=== PATIENT | female | born 1945 | race Caucasian/White ===

== ENCOUNTER 2024-08-25 00:58 | Inpatient (IN) | payer MEDICARE ==
[~2024-08-25] VITALS: Ht 157.5 cm; Wt 65.1 kg
[2024-08-25] MEDS: IV NS 0.9% 1,000 ML BAG IV ONE (01:26)
[2024-08-25 01:37] LABS: BASOPHILS % (AUTO) 0.7 % (0.0-2.0); EOSINOPHILS # (AUTO) 0.2 K/uL (0.0-0.7); EOSINOPHILS % (AUTO) 3.9 % (0.0-6.0); HEMATOCRIT 40 % (33-45); HEMOGLOBIN 13.4 g/dL (11.5-14.8); LYMPHOCYTES # (AUTO) 1.4 K/uL (0.8-4.8); LYMPHOCYTES % (AUTO) 26.4 % (20.0-44.0); MEAN CORPUSCULAR HEMOGLOBIN 31 PG (26.0-33.0); MEAN CORPUSCULAR HGB CONC 34 g/dl (31.0-36.0); MEAN CORPUSCULAR VOLUME 91 fL (82-100); MONOCYTES # (AUTO) 0.5 K/uL (0.1-1.30); MONOCYTES % (AUTO) 10.6 % (2.0-12.0); NEUTROPHILS % (AUTO) 58.4 % (43.0-81.0); PLATELET COUNT (AUTO) 266 K/uL (150-450); RED BLOOD CELL COUNT(AUTO) 4.35 MIL/uL (4.0-5.2); RED CELL DISTRIBUTION WIDTH 16.3 % (11.5-15.0); WHITE BLOOD COUNT (AUTO) 5.1 K/uL (4.3-11.0)
[2024-08-25 01:48] LABS: CALCIUM, SERUM 9.6 mg/dL (8.5-10.1); CARBON DIOXIDE 27 mmol/L (21-32); CHLORIDE 106 mmol/L (98-107); CREATININE 0.8 mg/dL (0.6-1.3); GLUCOSE 100 mg/dL (74-106); INR 0.93 (0.91-1.10); POTASSIUM 4.2 mmol/L (3.5-5.1); PROTHROMBIN TIME 9.9 SECS (9.2-11.1); SODIUM SERUM 146 mmol/L (136-145); UREA NITROGEN, BLOOD 14 mg/dL (7-18)
[2024-08-25 02:32] LABS: APPEARANCE,URINE CLEAR (CLEAR); BILIRUBIN,URINE NEGATIVE (NEGATIVE); BLOOD, URINE NEGATIVE Ery/uL (NEGATIVE); COLOR,URINE YELLOW (YELLOW); KETONES,URINE NEGATIVE (NEGATIVE); LEUKOCYTE ESTERASE ,URINE 1+ (NEGATIVE); NITRITE, URINE NEGATIVE (NEGATIVE); PROTEIN,URINE NEGATIVE (NEGATIVE); UGLUCOSE NEGATIVE (NEGATIVE); UROBILINOGEN,URINE 0.2 EU/dL (0.2)
[2024-08-25 02:41] LABS: ACETAMINOPHEN <10 ug/ml (10-30); ALANINE AMINOTRANSFERASE 22 U/L (12-78); ALBUMIN 3.7 g/dL (3.4-5.0); ALCOHOL, BLOOD < 3 mg/dL (0-10); ALKALINE PHOSPHATASE 83 U/L (46-116); ASPARTATE AMINOTRANSFERASE 27 U/L (15-37); BILIRUBIN,DIRECT 0.2 mg/dL (0.0-0.2); BILIRUBIN,TOTAL 0.7 mg/dL (0.2-1.0); SALICYLATE 0.4 mg/dL (2.8-20.0); TOTAL PROTEIN, SERUM 7.5 g/dL (6.4-8.2)
[2024-08-25 02:57] LABS: ADD URINE CULTURE YES; BACTERIA,URINE Few /HPF (None Seen); RBC,URINE 0-2 /HPF (0-2); SQUAMOUS EPITHELIAL CELL,UR Rare /HPF (None Seen)
[2024-08-25 03:11] LABS: AMPHETAMINE, URINE NEGATIVE (NEGATIVE); BARBITURATE, URINE NEGATIVE (NEGATIVE); BENZODIAZEPINE, URINE NEGATIVE (NEGATIVE); CANNABINOID, URINE NEGATIVE (NEGATIVE); COCCAINE, URINE NEGATIVE (NEGATIVE); PHENCYCLIDINE SCREEN,URINE NEGATIVE (NEGATIVE)
[2024-08-25 03:12] LABS: OPIATE, URINE POSITIVE (NEGATIVE)
[2024-08-25 03:31] LABS: SERUM AMMONIA 39 umol/L (11-32)
[2024-08-25] MEDS ORDERED: NITROFURANTOIN/MONOHYDRATE MACROCRYSTALS 100 MG CAPSULE ONE (03:33)
[2024-08-25] MEDS: NITROFURANTOIN/MONOHYDRATE MACROCRYSTALS 100 MG CAPSULE PO ONE (03:34)
[2024-08-25] MEDS ORDERED: NITR100C6 PO (05:25)
[2024-08-25] MEDS ORDERED: ACETAMINOPHEN 325 MG TABLET ONE (07:30)
[2024-08-25] MEDS: ACETAMINOPHEN 325 MG TABLET PO ONE (07:35)
[2024-08-25] MEDS ORDERED: Z GUARD REMEDY 4 OZ OINT TP PRN (11:30)
[2024-08-25] MEDS ORDERED: MAG HYDROX/AL HYDROX/SIMETH 30 ML UDC PO PRN (11:30)
[2024-08-25] MEDS ORDERED: MAGNESIUM HYDROXIDE 30 ML UDC PO PRN (11:30)
[2024-08-25] MEDS ORDERED: ONDANSETRON HCL/PF 4 MG/2 ML VIAL IVP PRN (11:30)
[2024-08-25] MEDS: OLANZAPINE 10 MG VIAL IM ONE (12:14)
[2024-08-25] MEDS: IV NS 0.9% 1,000 ML IV PRN (13:14)
[2024-08-25] MEDS: CEFTRIAXONE 1 G in IV D5W 50 ML IV SCH (13:43)
[2024-08-25] MEDS ORDERED: BACL20TA PO (15:50)
[2024-08-25] MEDS ORDERED: ESZO2TAB31 PO (15:50)
[2024-08-25] MEDS ORDERED: DULO60CA64 PO (15:50)
[2024-08-25] MEDS ORDERED: ALPR0.255 PO (15:50)
[2024-08-25] MEDS ORDERED: FAMO20TA8 PO (15:50)
[2024-08-25] MEDS ORDERED: LORA-259 PO (15:50)
[2024-08-25] MEDS ORDERED: NEBI2.5T5 PO (15:50)
[2024-08-25] MEDS ORDERED: ATOR40TA PO (15:50)
[2024-08-25 16:00] VITALS: BP 137/68; TEMP 98.1; O2SAT 95
[2024-08-25] MEDS: ACETAMINOPHEN 325 MG TABLET PO PRN (17:41)
[2024-08-25 20:00] VITALS: BP 154/78; TEMP 97.9; O2SAT 96
[2024-08-26] VITALS (7 sets, daily range): BP systolic 133–167; BP diastolic 69–88; TEMP 97.3–98.2; O2SAT 95–98
[2024-08-26] MEDS: ALPRAZOLAM 0.25 MG TABLET PO PRN (01:05)
[2024-08-26 07:11] LABS: BASOPHILS % (AUTO) 0.7 % (0.0-2.0); EOSINOPHILS # (AUTO) 0.2 K/uL (0.0-0.7); EOSINOPHILS % (AUTO) 2.6 % (0.0-6.0); HEMATOCRIT 33 % (33-45); HEMOGLOBIN 11.3 g/dL (11.5-14.8); LYMPHOCYTES # (AUTO) 1.6 K/uL (0.8-4.8); LYMPHOCYTES % (AUTO) 24.7 % (20.0-44.0); MEAN CORPUSCULAR HEMOGLOBIN 31 PG (26.0-33.0); MEAN CORPUSCULAR HGB CONC 34 g/dl (31.0-36.0); MEAN CORPUSCULAR VOLUME 91 fL (82-100); MONOCYTES # (AUTO) 0.7 K/uL (0.1-1.30); MONOCYTES % (AUTO) 11.4 % (2.0-12.0); NEUTROPHILS # (AUTO) 3.8 K/uL (1.8-8.9); NEUTROPHILS % (AUTO) 60.6 % (43.0-81.0); PLATELET COUNT (AUTO) 234 K/uL (150-450); RED BLOOD CELL COUNT(AUTO) 3.68 MIL/uL (4.0-5.2); RED CELL DISTRIBUTION WIDTH 16.1 % (11.5-15.0); WHITE BLOOD COUNT (AUTO) 6.3 K/uL (4.3-11.0)
[2024-08-26 07:14] LABS: CALCIUM, SERUM 7.2 mg/dL (8.5-10.1); CARBON DIOXIDE 21 mmol/L (21-32); CHLORIDE 114 mmol/L (98-107); CREATININE 0.6 mg/dL (0.6-1.3); GLUCOSE 78 mg/dL (74-106); MAGNESIUM 1.6 mg/dL (1.8-2.4); PHOSPHORUS 2.9 mg/dL (2.5-4.9); POTASSIUM 2.9 mmol/L (3.5-5.1); SODIUM SERUM 144 mmol/L (136-145); UREA NITROGEN, BLOOD 9 mg/dL (7-18)
[2024-08-26] MEDS ORDERED: POTASSIUM CHLORIDE 20 MEQ TAB.PRT.SR PO SCH (09:00)
[2024-08-26] MEDS: Magnesium 1GM/D5W 100ML PREMIX 100 ML IV SCH (09:44)
[2024-08-26] MEDS: POTASSIUM CHLORIDE 20 MEQ POWDER PACKET PO SCH (10:25)
[2024-08-26] MEDS: METOPROLOL TARTRATE 25 MG TABLET PO SCH (10:30)
[2024-08-26] MEDS: FAMOTIDINE (20 MG) 20 MG TABLET PO SCH (16:23)
[2024-08-26] MEDS: CLONIDINE HCL 0.1 MG TABLET PO PRN (16:23)
[2024-08-26] MEDS ORDERED: ALPRAZOLAM 0.25 MG TABLET PO PRN (19:30)
[2024-08-27] MEDS: ALPRAZOLAM 0.25 MG TABLET PO PRN (02:22)
[2024-08-27 06:02] LABS: BASOPHILS % (AUTO) 0.5 % (0.0-2.0); EOSINOPHILS # (AUTO) 0.1 K/uL (0.0-0.7); EOSINOPHILS % (AUTO) 1.5 % (0.0-6.0); HEMATOCRIT 38 % (33-45); HEMOGLOBIN 12.4 g/dL (11.5-14.8); LYMPHOCYTES # (AUTO) 1.3 K/uL (0.8-4.8); LYMPHOCYTES % (AUTO) 16.2 % (20.0-44.0); MEAN CORPUSCULAR HEMOGLOBIN 30 PG (26.0-33.0); MEAN CORPUSCULAR HGB CONC 33 g/dl (31.0-36.0); MEAN CORPUSCULAR VOLUME 91 fL (82-100); MONOCYTES # (AUTO) 0.8 K/uL (0.1-1.30); MONOCYTES % (AUTO) 9.4 % (2.0-12.0); NEUTROPHILS # (AUTO) 5.8 K/uL (1.8-8.9); NEUTROPHILS % (AUTO) 72.4 % (43.0-81.0); PLATELET COUNT (AUTO) 258 K/uL (150-450); RED BLOOD CELL COUNT(AUTO) 4.16 MIL/uL (4.0-5.2); RED CELL DISTRIBUTION WIDTH 15.6 % (11.5-15.0); WHITE BLOOD COUNT (AUTO) 8.1 K/uL (4.3-11.0)
[2024-08-27 06:24] LABS: ALBUMIN 3.1 g/dL (3.4-5.0); BILIRUBIN,TOTAL 0.6 mg/dL (0.2-1.0); CREATININE 0.6 mg/dL (0.6-1.3); MAGNESIUM 2.1 mg/dL (1.8-2.4); PHOSPHORUS 4.4 mg/dL (2.5-4.9); TOTAL PROTEIN, SERUM 6.6 g/dL (6.4-8.2)
[2024-08-27 07:00] VITALS: BP 133/85; TEMP 97.7; O2SAT 96
[2024-08-27 08:00] VITALS: BP 133/85; TEMP 97.7; O2SAT 96
[2024-08-27] MEDS: DULOXETINE HCL 30 MG CAPSULE.DR PO SCH (09:29)
[2024-08-27] MEDS: MAGNESIUM CITRATE 296 ML BOTTLE PO ONE (09:29)
[2024-08-27 10:25] LABS: THYROID STIMULATING HORMONE 2.2 uIU/mL (0.358-3.74)
[2024-08-27 16:00] VITALS: BP_SYST 135; BP_SYST 141; BP_DIAS 74; BP_DIAS 84; TEMP 98.6; O2SAT 96
[2024-08-27] MEDS ORDERED: HYDR-3980 PO (16:31)
[2024-08-27] MEDS ORDERED: [UNRECOGNIZED DRUG - OTHER] SL (16:31)
[2024-08-27] MEDS ORDERED: ACYC400T19 PO (16:31)
[2024-08-27] MEDS ORDERED: CARI350T27 PO (16:31)
[2024-08-27] MEDS ORDERED: PANCREATIC ENZYMES PO (16:31)
[2024-08-27] MEDS ORDERED: DILT30TA2 PO (16:31)
[2024-08-27] MEDS ORDERED: AMLO2.5T4 PO ×2 (16:31)
[2024-08-27] MEDS ORDERED: PROP15DR EACHEYE (16:31)
[2024-08-27] MEDS ORDERED: CYPROHEPTADINE PO (16:31)
[2024-08-27] MEDS ORDERED: CETI10TA14 PO (16:31)
[2024-08-27 20:00] VITALS: BP 122/71; TEMP 98.2; O2SAT 94
[2024-08-28 06:17] LABS: BASOPHILS % (AUTO) 0.1 % (0.0-2.0); EOSINOPHILS # (AUTO) 0.2 K/uL (0.0-0.7); EOSINOPHILS % (AUTO) 1.7 % (0.0-6.0); HEMATOCRIT 39 % (33-45); HEMOGLOBIN 13.2 g/dL (11.5-14.8); LYMPHOCYTES # (AUTO) 1.5 K/uL (0.8-4.8); LYMPHOCYTES % (AUTO) 15.5 % (20.0-44.0); MEAN CORPUSCULAR HEMOGLOBIN 31 PG (26.0-33.0); MEAN CORPUSCULAR HGB CONC 34 g/dl (31.0-36.0); MEAN CORPUSCULAR VOLUME 91 fL (82-100); MONOCYTES # (AUTO) 1.1 K/uL (0.1-1.30); MONOCYTES % (AUTO) 11.7 % (2.0-12.0); NEUTROPHILS # (AUTO) 6.7 K/uL (1.8-8.9); PLATELET COUNT (AUTO) 260 K/uL (150-450); RED BLOOD CELL COUNT(AUTO) 4.27 MIL/uL (4.0-5.2); RED CELL DISTRIBUTION WIDTH 16.1 % (11.5-15.0); WHITE BLOOD COUNT (AUTO) 9.5 K/uL (4.3-11.0)
[2024-08-28 06:22] LABS: CALCIUM, SERUM 9.1 mg/dL (8.5-10.1); CREATININE 0.9 mg/dL (0.6-1.3); MAGNESIUM 2.4 mg/dL (1.8-2.4); PHOSPHORUS 4.2 mg/dL (2.5-4.9); POTASSIUM 3.7 mmol/L (3.5-5.1)
[2024-08-28 08:00] VITALS: BP 111/63; TEMP 98.6; O2SAT 99
[2024-08-28 16:00] VITALS: BP 147/80; TEMP 97.7; O2SAT 98
[2024-08-28 17:13] VITALS: BP 149/80
[2024-08-29 02:08] LABS: FOLIC ACID 7.4 ng/mL (>3.0)
[2024-08-29] MEDS ORDERED: PROSOURCE / PROSTAT (PYXIS) 30 ML UDC PO SCH (09:00)
== END 2024-08-28 18:10 | disposition home or self-care (01) | DRG 93 ==
LOC: ER 01:06 → TELE 11:49 → MED 08-26 09:44
PROVIDERS: ADMIT Internal Medicine; ATTEND Internal Medicine
DX: G92.8 Other toxic encephalopathy (principal); E83.42 Hypomagnesemia; E87.6 Hypokalemia; I10 Essential (primary) hypertension; E78.5 Hyperlipidemia, unspecified; F32.9 Major depressive disorder, single episode, unspecified; F41.9 Anxiety disorder, unspecified; Z86.73 Personal history of transient ischemic attack (TIA), and cerebral infarction without residual deficits; R53.1 Weakness; T50.995A Adverse effect of other drugs, medicaments and biological substances, initial encounter; Y92.009 Unspecified place in unspecified non-institutional (private) residence as the place of occurrence of the external cause; R41.9 Unspecified symptoms and signs involving cognitive functions and awareness
CPT/HCPCS: 36415; 70450-TC; 71045-TC; 80048-TC; 80053-TC; 80061-TC; 80076-TC; 81001; 82140-TC; 82607-TC; 82962-TC; 83735-TC; 83921; 84100-TC; 84425; 84443-TC; 84484-TC; 85025-TC; 85730-TC; 87081-TC; 87086-TC; 93971-TC; 97116-TC; 97530-TC; 97535-TC; A4223; G0378; G0480; J0696; J3475; J7030; J7060